=== PATIENT | male | born 1950 | race Hispanic/Latino ===

== ENCOUNTER 2017-10-21 10:24 | Inpatient (IN) | payer MEDICARE ==
[~2017-10-21] VITALS: Ht 165.1 cm; Wt 77.1 kg
[~2017-10-21 10:24] MED LIST: CARVEDILOL3.125 MG PO; FUROSEMIDE40 MG PO; GLYBURIDE5 MG PO; LEVOTHYROXINE112 MCG PO; PANTOPRAZOLE SO40 MG PO; SPIRONOLACTONE25 MG PO
[2017-10-21 11:47] LABS: BASOPHILS % 0.4 % (0.0-1.0); HEMATOCRIT 32.3 % (38.2-49.6); HEMOGLOBIN 10.5 g/dL (14.0-18.0); LYMPHOCYTES # (AUTO) 0.6 (1.0-3.2); LYMPHOCYTES % 8.2 % (18.0-39.1); MEAN CORPUSCULAR HEMOGLOBIN 32.8 pg (28-32); MEAN CORPUSCULAR HGB CONC 32.5 g/dL (31-35); MEAN CORPUSCULAR VOLUME 100.9 fL (81-99); MONOCYTES # (AUTO) 0.3 (0.2-0.8); MONOCYTES % 4.9 % (4.4-11.3); NEUTROPHILS # (AUTO) 5.8 (2.1-6.9); NEUTROPHILS % 86.4 % (38.7-80.0); PLATELET COUNT 183 x10e3/uL (140-360); RED CELL DISTRIBUTION WIDTH 14.5 % (11.7-14.4)
[2017-10-21 12:08] LABS: INR 1.57; PARTIAL THROMBOPLASTIN TIME 36.6 seconds (23.8-35.5); PROTHROMBIN TIME 19.6 seconds (11.9-14.5)
[2017-10-21 12:13] LABS: ALBUMIN 3.4 g/dL (3.5-5.0); ALBUMIN/GLOBULIN RATIO 1.1 (0.8-2.0); ANION GAP 26.4 mmol/L (8-16); CREATININE, SERUM 6.03 mg/dL (0.72-1.25); POTASSIUM 5.4 mmol/L (3.5-5.1)
[2017-10-21 12:16] LABS: CREATINE KINASE MB 0.7 ng/mL (0.00-5.00); TROPONIN I 0.033 ng/mL (0-0.300)
[2017-10-21 12:20] LABS: LYMPHOCYTES % (MANUAL) 5 % (19-48); METAMYELOCYTES % (MANUAL) 12 % (0-0); MONOCYTES % (MANUAL) 52 % (3.4-9.0); NEUTROPHILS % (MANUAL) 26 % (40-74)
[2017-10-21 12:21] LABS: PLATELET ESTIMATE SLIGHTLY DECREASED; PLATELET MORPHOLOGY COMMENT NORMAL; RBC MORPHOLOGY COMMENT NORMAL
--- NOTE | 2017-10-21 15:37 | Diagnostic Imaging Report ---
PROCEDURE:US GUIDED PARACENTESIS COMPARISON:None. INDICATIONS:Ascites FINDINGS: After informed consent was obtained, focused abdominal ultrasound identified a safe entry route into the free ascitic fluid in the left lower quadrant of the abdomen. The overlying skin was prepped and draped in sterile fashion. Lidocaine 1% was used for local anesthesia. Under ultrasound guidance, a centesis needle was advanced into the ascitic fluid, the needle was removed and the catheter attached to vacuum bottle. 7300 cc of dark fluid were aspirated. The catheter was removed. There was <1cc blood loss and no complications. Samples were sent to the laboratory for analysis. CONCLUSION: Uncomplicated ultrasound-guided paracentesis with removal of 7300 cc. Dictated by: Laurent Mosqueda M.D. on 10/21/2017 at 15:44 Electronically approved by: Laurent Mosqueda M.D. on 10/21/2017 at 15:44
[2017-10-21] MEDS ORDERED: ONDANSETRON HCL INJ 2 MG/ML VIAL IV PRN (16:00)
[2017-10-21] MEDS ORDERED: SODIUM CHLORIDE FLUSH 10 ML SYR INJ PRN (16:00)
[2017-10-21] MEDS ORDERED: HYDROMORPHONE 1MG/1ML INJ IV PRN (16:00)
[2017-10-21] MEDS ORDERED: CALCIUM GLUCONATE 10% INJ 9.3 MEQ in SODIUM CHLORIDE 0.9% 100 ML 100 ML IV ONE (16:00)
[2017-10-21] MEDS ORDERED: SOD POLYSTYRENE SULFONATE SUSP 15 GM/60 ML BTL PO ONE (16:00)
[2017-10-21] MEDS ORDERED: ALBUMIN HUMAN 25 GM/ 100 ML IV SCH (17:00)
[2017-10-21] MEDS ORDERED: ALBUMIN HUMAN 25 GM/ 100 ML IV ONE (17:00)
[2017-10-21] MEDS ORDERED: ALBUMIN HUMAN 100 ML IV ONE (17:15)
[2017-10-21] MEDS ORDERED: SOD POLYSTYRENE SULFONATE SUSP 15 GM/60 ML BTL PO NR (18:00)
[2017-10-21 18:10] LABS: BODY FLUID TYPE PERITONEAL
[2017-10-21 18:12] LABS: BODY FLUID APPEARANCE CLOUDY
[2017-10-21 18:14] LABS: RBC,BODY FLUID 4841 cells/uL; WBC,BODY FLUID 4336 cells/uL
[2017-10-21 18:50] LABS: BODY FLUID COLOR YELLOW
[2017-10-21 19:17] LABS: LYMPHOCYTES,BODY FLUID 6 %; MONO/MACROPHG,BODY FLUID 2 %; NEUTROPHILS,BODY FLUID 92 %
[2017-10-21] MEDS: SODIUM CHLORIDE 0.9% IV SCH (21:21)
[2017-10-21] MEDS: ALBUMIN HUMAN IV SCH (21:21)
[2017-10-21] MEDS ORDERED: SODIUM CHLORIDE 0.9% 1000ML 1,000 ML IV ONE (21:45)
[2017-10-21 23:05] LABS: BASOPHILS % 0.6 % (0.0-1.0); EOSINOPHILS % 0.3 % (0.0-6.0); HEMATOCRIT 24.1 % (38.2-49.6); LYMPHOCYTES # (AUTO) 0.3 (1.0-3.2); LYMPHOCYTES % 8.8 % (18.0-39.1); MEAN CORPUSCULAR HEMOGLOBIN 32.3 pg (28-32); MEAN CORPUSCULAR HGB CONC 30.3 g/dL (31-35); MEAN CORPUSCULAR VOLUME 106.6 fL (81-99); MONOCYTES # (AUTO) 0.1 (0.2-0.8); MONOCYTES % 4.2 % (4.4-11.3); NEUTROPHILS # (AUTO) 2.8 (2.1-6.9); NEUTROPHILS % 85.5 % (38.7-80.0); PLATELET COUNT 122 x10e3/uL (140-360); RED BLOOD COUNT 2.26 x10e6/uL (4.3-5.7); RED CELL DISTRIBUTION WIDTH 14.6 % (11.7-14.4)
[2017-10-21 23:11] LABS: HEMOGLOBIN 7.3 g/dL (14.0-18.0)
[2017-10-21] MEDS ORDERED: SODIUM CHLORIDE 0.9% 250ML 250 ML IV ONE (23:30)
[2017-10-21 23:31] LABS: ALBUMIN 2.9 g/dL (3.5-5.0); ALBUMIN/GLOBULIN RATIO 1.4 (0.8-2.0); ANION GAP 31.6 mmol/L (8-16); CALCIUM 10.7 mg/dL (8.4-10.2); CREATININE, SERUM 6.16 mg/dL (0.72-1.25); POTASSIUM 4.6 mmol/L (3.5-5.1)
--- NOTE | 2017-10-22 01:35 | Diagnostic Imaging Report ---
EXAM: CT Abdomen and Pelvis WITHOUT contrast INDICATION: Distended abdomen. Patient is status post paracentesis, suspicious for abdominal bleeding. COMPARISON: None. TECHNIQUE: Abdomen and pelvis were scanned utilizing a multidetector helical scanner from the lung base to the pubic symphysis without administration of IV contrast. Absence of intravenous contrast decreases sensitivity for detection of focal lesions and vascular pathology. Coronal and sagittal reformations were obtained. Routine protocol was performed. IV CONTRAST: None. ORAL CONTRAST: Water RADIATION DOSE: Not available at the time of interpretation Estimated effective dose: (DLP x 0.015 x size factor) mSv COMPLICATIONS: None FINDINGS: LINES and TUBES: None. LOWER THORAX: Small right pleural effusion and bibasilar atelectasis. HEPATOBILIARY: The liver appears nodular No focal hepatic lesions. No biliary ductal dilation. GALLBLADDER: There are cholecystectomy clips. SPLEEN: No splenomegaly. PANCREAS: No focal masses or ductal dilatation. ADRENALS: No adrenal nodules KIDNEYS/URETERS: No hydronephrosis. No cystic or solid mass lesions. No stones. GI TRACT: No abnormal distention, wall thickening, or evidence of bowel obstruction. Appendix is normal. PELVIC ORGANS/BLADDER: Unremarkable. LYMPH NODES: No lymphadenopathy. VESSELS: There is moderate atherosclerotic disease in the aorta and major arterial branches. PERITONEUM / RETROPERITONEUM: There is moderate of amount of free fluid in the abdomen. The density of the fluid within the peritoneal cavity is mostly simple fluid ranging between 10 and 15 HU, however, the fluid in the most dependent portion of the pelvis increases its density to 32 HU. There is evidence of moderate amount of free air in the peritoneal cavity which most likely is related to paracentesis. BONES: Unremarkable. SOFT TISSUES: There is diffuse anarsarca. IMPRESSION: 1. Ascites and pneumoperitoneum. 2. The density of the ascitic fluid in the pelvis is elevated suggestive of small amount of blood products. 3. No evidence of significant bleeding within the peritoneal cavity. 4. Follow-up of pneumoperitoneum is recommended with serial upright KUB until resolution. 5. Nodular liver suspicious for cirrhosis. Signed by: Dr. Gregor Bedoya M.D. on 10/22/2017 1:31 AM
[2017-10-22] MEDS: ALBUMIN HUMAN IV SCH ×4 (02:24→22:53)
[2017-10-22] MEDS: SODIUM CHLORIDE 0.9% IV SCH ×4 (02:24→22:53)
[2017-10-22] MEDS ORDERED: PHYTONADIONE 10 MG/ML AMP SQ STA (02:25)
[2017-10-22] MEDS ORDERED: ONDANSETRON HCL INJ 2 MG/ML VIAL IV STA (03:04)
[2017-10-22] MEDS ORDERED: OCTREOTIDE ACETATE 500 MCG in SODIUM CHLORIDE 0.9% 250ML 250 ML IV SCH (03:15)
[2017-10-22] MEDS ORDERED: SODIUM CHLORIDE 0.9% 250ML 250 ML ONE (03:25)
[2017-10-22] MEDS ORDERED: SODIUM CHLORIDE 0.9% 500ML 500 ML ONE (03:28)
[2017-10-22] MEDS ORDERED: OCTREOTIDE ACETATE 1 ML ONE (03:29)
[2017-10-22] MEDS ORDERED: PANTOPRAZOLE 40 MG 10ML VIAL IV STA (04:09)
[2017-10-22] MEDS ORDERED: LIDOCAINE HCL 1% LOCAL INJ 20 ML VIAL ONE (05:28)
--- NOTE | 2017-10-22 05:58 | Diagnostic Imaging Report ---
Non-tunneled Dialysis Catheter Placement October 22, 2017 Pre-Procedure Diagnosis: Renal failure Post-procedure Diagnosis:Renal failure Utilization Management Manager: Paz Cavazos Waste Collection Driver: None Sedation: None. Heart rate and oxygen saturation were monitored in real-time. Blood pressure was measured in 5 minute increments. 1% lidocaine was used for local anesthesia. Radiation Dose: 4.747 mGy (cumulative air kerma) Fluoroscopy time: 0.2 minutes Estimate blood loss: <5 mL Blood administered: None Complications: None Implants/Grafts: 13 Latvian 15 cm 3 lumen temporary dialysis catheter (Trialysis) Specimen: None Procedure: Informed consent was obtained and the patient positioned supine in the fluoroscopy suite. A timeout was performed, followed by preliminary ultrasound of the right internal jugular vein (see findings below). The right neck and chest were prepped and draped in standard fashion. Using real-time ultrasound guidance a 18 gauge vascular needle was used to access the right internal jugular vein. An image was stored in the electronic medical record. A wire was advanced and the needle exchanged for a non-tunneled dialysis catheter using standard Salinger technique. At the end of the procedure the catheter was flushed, secured to the skin and a sterile dressing applied. The patient tolerated the procedure well and without immediate complication. Findings: Patent right internal jugular vein as demonstrated by normal ultrasound compressibility. Impression: Successful placement of a non-tunneled right internal jugular vein dialysis catheter using ultrasound guidance. This report was generated with voice-recognition technology. Errors in folder stitcher operator can occur. Please interpret accordingly and contact a radiologist if there are any questions regarding the report. Signed by: Dr. Amado Cavazos M.D. on 10/22/2017 8:37 AM
[2017-10-22] MEDS ORDERED: ALBUMIN HUMAN 100 ML IV SCH (07:45)
[2017-10-22] MEDS ORDERED: NOREPINEPHRINE BITARTRATE/ NS 250 ML IV STA (07:48)
[2017-10-22 07:49] LABS: ABG HCO3 11 mmol/L (23-28); ABG PCO2 28 mmHg (41-51); ABG PH 7.22 (7.31-7.41); ABG PO2 81 mmHg (80-105)
[2017-10-22 07:55] LABS: BASOPHILS % 0.9 % (0.0-1.0); EOSINOPHILS % 0.3 % (0.0-6.0); HEMATOCRIT 27.6 % (38.2-49.6); HEMOGLOBIN 8.9 g/dL (14.0-18.0); LYMPHOCYTES # (AUTO) 0.1 (1.0-3.2); LYMPHOCYTES % 3.8 % (18.0-39.1); MEAN CORPUSCULAR HEMOGLOBIN 31.9 pg (28-32); MEAN CORPUSCULAR HGB CONC 32.2 g/dL (31-35); MEAN CORPUSCULAR VOLUME 98.9 fL (81-99); MONOCYTES # (AUTO) 0.2 (0.2-0.8); NEUTROPHILS # (AUTO) 3.1 (2.1-6.9); NEUTROPHILS % 89.4 % (38.7-80.0); PLATELET COUNT 96 x10e3/uL (140-360); RED BLOOD COUNT 2.79 x10e6/uL (4.3-5.7); RED CELL DISTRIBUTION WIDTH 16.4 % (11.7-14.4)
[2017-10-22 08:08] LABS: INR 1.69; PROTHROMBIN TIME 20.8 seconds (11.9-14.5)
[2017-10-22 08:09] LABS: PARTIAL THROMBOPLASTIN TIME 35.4 seconds (23.8-35.5)
[2017-10-22 08:17] LABS: BASOPHILS % 0.6 % (0.0-1.0); EOSINOPHILS % 0.3 % (0.0-6.0); HEMATOCRIT 27.8 % (38.2-49.6); LYMPHOCYTES # (AUTO) 0.1 (1.0-3.2); MEAN CORPUSCULAR HEMOGLOBIN 31.9 pg (28-32); MEAN CORPUSCULAR HGB CONC 32.4 g/dL (31-35); MEAN CORPUSCULAR VOLUME 98.6 fL (81-99); MONOCYTES # (AUTO) 0.2 (0.2-0.8); MONOCYTES % 5.2 % (4.4-11.3); NEUTROPHILS # (AUTO) 3.1 (2.1-6.9); PLATELET COUNT 98 x10e3/uL (140-360); RED BLOOD COUNT 2.82 x10e6/uL (4.3-5.7); RED CELL DISTRIBUTION WIDTH 16.5 % (11.7-14.4)
[2017-10-22 08:24] LABS: CREATINE KINASE MB 1.4 ng/mL (0.00-5.00); TROPONIN I 0.022 ng/mL (0-0.300)
[2017-10-22 08:26] LABS: ALBUMIN 3.4 g/dL (3.5-5.0); ALBUMIN/GLOBULIN RATIO 1.4 (0.8-2.0); ANION GAP 33.3 mmol/L (8-16); CALCIUM 10.5 mg/dL (8.4-10.2); CREATININE, SERUM 6.36 mg/dL (0.72-1.25); POTASSIUM 4.3 mmol/L (3.5-5.1)
[2017-10-22 08:55] LABS: HYPOCHROMASIA SLIGHT; LYMPHOCYTES % (MANUAL) 17 % (19-48); METAMYELOCYTES % (MANUAL) 9 % (0-0); MONOCYTES % (MANUAL) 58 % (3.4-9.0); MYELOCYTES % (MANUAL) 2 % (0-0); NEUTROPHILS % (MANUAL) 12 % (40-74)
[2017-10-22 08:56] LABS: ANISOCYTOSIS SLIG; PLATELET ESTIMATE MODERATELY DECREASED; PLATELET MORPHOLOGY COMMENT FEW LARGE; POIKILOCYTOSIS SLIGHT; RBC MORPHOLOGY COMMENT ABNORMAL
[2017-10-22] MEDS ORDERED: SODIUM CHLORIDE 0.9% 1000ML 1,000 ML ONE (09:32)
[2017-10-22] MEDS ORDERED: MANNITOL 25% 12.5GM/50 ML VIAL IV ONE (10:00)
[2017-10-22] MEDS ORDERED: ALBUMIN HUMAN 12.5GM / 50ML IV ONE (10:00)
[2017-10-22] MEDS ORDERED: CEFTRIAXONE SOD 2 GM in WATER STERILE 10ML VIAL 20 ML IV SCH (10:15)
[2017-10-22] MEDS: PHENYLEPHRINE 10MG/ML VIAL 40 MG in DEXTROSE 5% 250ML 250 ML IV SCH ×2 (10:37→16:21)
--- NOTE | 2017-10-22 10:37 | Diagnostic Imaging Report ---
PROCEDURE:CHEST SINGLE (PORTABLE) TECHNIQUE:Portable AP chest INDICATION:Acute renal failure COMPARISON:None. FINDINGS: Non-tunneled right internal jugular dialysis catheter with tip atrial caval junction. Lungs are clear and symmetrically inflated. Cardiomegaly with central vascular congestion. No pleural effusions. Intact skeleton. CONCLUSION: Cardiomegaly with central vascular congestion. Dictated by: Amado Cavazos M.D. on 10/22/2017 at 10:45 Electronically approved by: Amado Cavazos M.D. on 10/22/2017 at 10:45
--- NOTE | 2017-10-22 10:59 | Consultation ---
DATE OF CONSULTATION: October 22, 2017 REASON FOR CONSULTATION: DAYNA. HISTORY: Mr. Asher is a 66-year-old man with a history of cirrhosis, who presented to the emergency department yesterday with worsening abdominal distention. Undergoes paracentesis regularly and was due to have a paracentesis performed today. However, he presented to the emergency department yesterday due to worsening distention. He underwent paracentesis with 7 L removed. Soon after, patient wanted to sign out AMA. At that point, labs showed DAYNA with a BUN of 110 and creatinine of 6 mg/dL. Patient decided to stay, and overnight has developed worsening abdominal distention and tense ascites. Labs showed persistently worse renal function. Abdominal CT showed pneumoperitoneum and small amount of blood products in the peritoneal cavity along with moderate ascites. Over the course of the night, he has had no improvement in his condition. Unable to have Recio placed. Bladder scan done on initial presentation showed 140 mL. Repeat bladder scan this morning is pending. REVIEW OF SYSTEMS: Unable to obtain due to altered mental status. PAST MEDICAL HISTORY: Significant for alcoholic cirrhosis. PAST SURGICAL HISTORY: Repeated paracentesis. SOCIAL HISTORY: Stopped drinking 2 weeks ago. Unable to obtain history in regards to tobacco, drug abuse. FAMILY HISTORY: Unable to obtain. MEDICATIONS: Reviewed in electronic medical record. PHYSICAL EXAMINATION: GENERAL: He is lying in bed, does seem to be in moderate distress. HEENT: NCAT. PERRLA. EOMI. NECK: JVD appreciated. LUNGS: Decreased breath sounds at the bases. No wheezing or rales. HEART: Regular rate and rhythm. S1 and S2 normal. No murmurs, rubs, or gallops. ABDOMEN: Distended and tense, but no guarding. LOWER EXTREMITIES: Multiple petechiae, but no edema. MUSCULOSKELETAL: Normal inspection. NEURO: He is confused and minimally responsive to questioning. LABS: Reviewed in electronic medical record. BUN at this point is 120 mg/dL and creatinine is 6.1. ASSESSMENT: Mr. Asher is a 66-year-old man who presents with acute kidney injury, which at this point is oliguric. Differential includes abdominal compartment syndrome, hepatorenal syndrome type 1, and prerenal azotemia. Will start him on treatment for acute kidney injury, perform a STAT bladder scan to assure and assess urine output. Urology consult for Recio placement. Renal function panel every 8 hours Thank you, Dr. Juares for allowing me to participate in the care of Mr. Asher. I will continue to follow closely. Job#: [id number] DR MCKEON
--- NOTE | 2017-10-22 11:47 | Consultation ---
DATE OF CONSULTATION: October 22, 2017 PULMONARY/CRITICAL CARE CONSULTATION HPI: Mr. Asher is a 66-year-old male with end-stage liver disease, chronic liver disease due to alcohol use. He has a history of alcohol use. He was drinking up until a month ago. He comes here off and on to have paracentesis. His last paracentesis was done yesterday where almost 6 to 7 liters of fluid was taken out. He became hypotensive and was sent to the emergency room. He is currently denying any chest pain. He is having some abdominal distention and abdominal pain. In the emergency room, the patient was found to be hypotensive, and the patient was started on Levophed. He was also found to have low hemoglobin, and he was transfused 2 units of FFP and 2 units of blood. Nephrology was consulted on the patient, and hemodialysis has been requested today. He will get hemodialysis. His usual followup is at the [facility]. REVIEW OF SYSTEMS GENERAL: Denies any fever or chills. HEAD: Denies any head trauma or head injury. ENT: Denies any earache or nosebleed. CVS: Denies any chest pain. RESPIRATORY: Mild shortness of breath. GI: Abdominal distention, ascites. OTHER: The rest of the review of systems are negative except as in HPI. PAST MEDICAL HISTORY: Chronic liver disease. Alcoholism. Ascites. Possibly had underlying renal failure, now with acute worsening. ALLERGIES: NO KNOWN DRUG ALLERGIES. PAST SURGICAL HISTORY: Cholecystectomy. PHYSICAL EXAMINATION VITALS: Temperature 99.6, pulse of 101, blood pressure 87/43, respiratory rate 18, O2 sat 97%. SKIN: Warm and dry. He is icteric. Lower extremity skin has a petechial rash. Unsure of the etiology of the rash. HEENT: Oral mucosa is dry. Poor dental hygiene. NECK: Supple. No JVD. CHEST: Clear to auscultation bilaterally. ABDOMEN: Distended. EXTREMITIES: Trace pedal edema. Rash on both lower extremities. LABS: White count of 3.41, hemoglobin 8.9, platelet count 96. Chemistry: Sodium 138, potassium 4.3, chloride 98, BUN 121, creatinine 6.36, total bilirubin 3.6. AST and ALT are 11 [address] of the abdomen and pelvis, which is showing ascites and pneumoperitoneum. Density of ascitic fluid in the pelvis is elevated suggestive of small amount of blood products. No evidence of significant bleeding. Nodular liver suspicious for cirrhosis. ASSESSMENT AND PLAN: Mr. Reymundo Asher is a 66-year-old male who presented to the emergency room after having large volume paracentesis resulting in hypotension. CURRENT PROBLEMS 1. Chronic liver disease due to alcohol use, liver cirrhosis per the CT scan. 2. Acute kidney injury. May have underlying chronic kidney disease. Baseline creatinine is not available. Differential for acute kidney injury could be hepatorenal versus acute tubular necrosis. Possibly compartment syndrome, however unlikely as recently large volume paracentesis was done. 3. Hypotension, circulatory shock due to chronic liver disease and hypovolemia. 4. Coagulopathy. PLAN 1. Nephrology has been consulted. Patient will possibly get hemodialysis. 2. Continue the patient on Levophed for blood pressure support. 3. The patient should be admitted to the ICU. 4. Anemia and thrombocytopenia due to chronic liver disease. Patient underwent 2 units of blood transfusion. The ascitic fluid is showing fluid total cell count of 100. Neutrophils are 92%. Possibility of SBP cannot be ruled out. Agree with IV Rocephin. 5. On octreotide infusion for possibility of hepatorenal syndrome. Discussed with the patient's close friend at bedside. Critical care time spent 50 minutes. Job#: [id number]
--- NOTE | 2017-10-22 13:50 | Consultation ---
DATE OF CONSULTATION: October 22, 2017 GASTROENTEROLOGY CONSULTATION REFERRING PHYSICIAN: Clinton Juares MD REASON FOR CONSULTATION: Decompensated cirrhosis. HISTORY OF PRESENT ILLNESS: Mr. Asher is a 66-year-old man with decompensated alcoholic cirrhosis. He reports he gets his healthcare through the [facility]. He was just there roughly 2 weeks ago and, per family at bedside, they think he was likely treated for SBP for 2 weeks. He left against medical advice. He has alcoholism and has been drinking as recently as 19 days ago per his report. He came to the ER yesterday and had a paracentesis. White count was high at 4336. However, there was also a high RBC count at 4841. The fluid was primarily PMN. Cultures were showing gram-negative rods as well as some Gram stain. Hemoglobin did drop from baseline of 10 to 11 down to 7.3 after the procedure and is stable now. He denies any overt bleeding or melena. He has diffuse abdominal pain. He is awake and oriented but lethargic and has asterixis. PAST MEDICAL HISTORY 1. Alcoholic cirrhosis. 2. Alcoholism. 3. Diabetes. 4. Hypertension. 5. GERD. SURGICAL HISTORY: Includes cholecystectomy, cataract surgery, and paracentesis. MEDICATIONS AND ALLERGIES: Reviewed, please see MAR and medication reconciliation form. SOCIAL HISTORY: Alcohol as recent as 19 days ago. FAMILY HISTORY: Noncontributory but reviewed. REVIEW OF SYSTEMS: Ten-system review is positive for that mentioned in HPI, otherwise unremarkable. PHYSICAL EXAMINATION GENERAL: He appears lethargic and chronically ill. HEENT: Pupils are equal, round, and reactive to light. He has some arcus senilis. NECK: Supple. LUNGS: Decreased at the bases. CARDIOVASCULAR: S1 and S2. ABDOMEN: Tender throughout. He has some mild tympany in the epigastric region. He has ascites. There is no rebound, guarding or masses. Significant ecchymotic areas. EXTREMITIES: No clubbing or cyanosis. PSYCH: Lethargic but cooperative. NEUROLOGIC: Alert and oriented. He has asterixis, though. HEM-ONC: No adenopathy. Electronic health record reviewed for laboratory and radiologic studies as well as history. ASSESSMENT 1. Severe decompensated cirrhosis. 2. Bacterial peritonitis, primary versus secondary, with history of bacterial peritonitis after he left against medical advice at the [facility] a couple of weeks ago. 3. Recent alcohol abuse. 4. Renal failure. 5. Encephalopathy. 6. Acute blood loss anemia, likely related to the paracentesis. 7. Coagulopathy related to cirrhosis. PLAN: At the current time, he has a very poor prognosis. He will need to be seen by nephrology. I agree with ICU status. He is currently on 2 pressors and septic. Given the decompensated cirrhosis, the active infection and renal failure, his overall prognosis is very poor. We will need to follow up the pending ascitic fluid culture for identification and sensitivities. He will need to be on broad-spectrum antibiotics. He has pneumoperitoneum, which is likely just related to the paracentesis. However, underlying pathology is not excluded yet. I will try to get him stabilized. Treat his sepsis and renal failure and altered mental status with lactulose and Xifaxan. Once stabilized, I would request transfer back to the [place] as they have continuity there as well as transplant capability if he were to: 1) Become stable enough, and 2) Pass their social evaluation, given his recent alcohol and noncompliance. Thank you very much for asking me to see Mr. Asher. If you have any questions or concerns, please do not hesitate to contact me. Job#: [id number]
[2017-10-22] MEDS ORDERED: ALBUMIN HUMAN 25 GM/ 100 ML IV SCH (14:00)
--- NOTE | 2017-10-22 14:18 | Diagnostic Imaging Report ---
PROCEDURE:US RETROPERITONEAL ( KIDNEY ). COMPARISON:None. INDICATIONS:Renal Failure TECHNIQUE: Green scale and color Doppler ultrasound kidneys FINDINGS: Right kidney: 9.1 x 5.9 x 5.6 cm. Cortical thickness 1.9 cm. Left kidney: 9.3 x 5.4 x 5.1 cm. Cortical thickness 1.8 cm. Both kidneys demonstrate normal parenchymal echogenicity. No stone, cyst or mass. No hydronephrosis. Urinary bladder decompressed by Recio catheter. Mild ascites noted. CONCLUSION: No acute abnormality. No evidence of obstruction. Dictated by: Amado Cavazos M.D. on 10/22/2017 at 14:26 Electronically approved by: Amado Cavazos M.D. on 10/22/2017 at 14:26
[2017-10-22] MEDS: LACTULOSE SYRUP 20 GM/30 ML UDC PO SCH ×2 (15:00→22:46)
[2017-10-22 15:06] LABS: ABG HCO3 16 mmol/L (23-28); ABG PCO2 31 mmHg (41-51); ABG PH 7.33 (7.31-7.41); ABG PO2 64 mmHg (80-105)
--- NOTE | 2017-10-22 15:24 | Diagnostic Imaging Report ---
PROCEDURE: A single AP view of the chest. COMPARISON: Chest radiograph 10/22/2017 INDICATIONS: RESPIRATORY DISTRESS FINDINGS: Lines/tubes: Right internal jugular dialysis catheter tip overlies the cavoatrial junction. Lungs: The lungs are mildly inflated. There is no evidence of pneumonia. Mild central pulmonary venous congestion. Pleura: There is no pleural effusion or pneumothorax. Heart and mediastinum: Stable mild enlargement of the cardiac silhouette. Aortic arch calcifications. Bones: No acute bony abnormality. IMPRESSION: Cardiomegaly and central pulmonary venous congestion. Dictated by: Bruce Alarcon M.D. on 10/22/2017 at 15:32 Electronically approved by: Bruce Alarcon M.D. on 10/22/2017 at 15:32
--- NOTE | 2017-10-22 15:36 | Consultation ---
DATE OF CONSULTATION: October 22, 2017 REQUESTING PHYSICIAN: Dr. Jose Juares. REASON FOR CONSULTATION: Abnormal EKG. HISTORY OF PRESENT ILLNESS: This is a 66-year-old man with history of cirrhosis for which he undergoes regular paracenteses who presented to the ER for increasing abdominal pain. He underwent paracentesis yesterday with 7 liters removed. Afterwards he attempted to sign out AMA; however, he was found to have acute kidney injury with creatinine of 6. Overnight he had worsening abdominal distention and ascites with vasopressor requirement for which he is now on Levophed 30 mcg a minute and phenylephrine 110 mcg a minute. He also was noted to have acute blood loss anemia and EKG changes for which cardiology is consulted. History is limited from the patient, but he does endorse chest pain and shortness of breath. REVIEW OF SYSTEMS: Unable to obtain due to altered mental status. PAST MEDICAL HISTORY: Cirrhosis with regular paracenteses. Hypertension. Diabetes. Hyperlipidemia. PAST SURGICAL HISTORY: Cholecystectomy. Cataracts. ALLERGIES: PLEASE SEE EMR. MEDICATIONS: Please see medication reconciliation. SOCIAL HISTORY: Limited, but apparently regular alcohol use. Unable to obtain history regarding his smoking or any illicit drug use. FAMILY HISTORY: Noncontributory. PHYSICAL EXAMINATION VITAL SIGNS: Temperature 99.6 degrees, pulse 103, respiratory rate 22, blood pressure 106/40, oxygen saturation 97%. GENERAL: A well-nourished, well-developed man in no acute distress. HEENT: Normocephalic, atraumatic. NECK: Supple. No thyromegaly or cervical lymphadenopathy. No carotid bruits. LUNGS: Decreased breath sounds at the bases. No wheezes or crackles. ABDOMEN: Distended. Tender to palpation. EXTREMITIES: No edema. NEUROLOGIC: Awake, but is not very responsive to questioning. SKIN: Petechiae noted on bilateral lower extremities. LABORATORY DATA: Sodium 138, potassium 4.3, chloride 98, CO2 of 11, BUN 121, creatinine 6.36. WBCs 3.4, hemoglobin 8.9, hematocrit 27.6, platelets 96,000, INR 1.69. EKG notable for normal sinus rhythm with PACs, nonspecific ST and T wave abnormalities. Chest x-ray: Cardiomegaly with central vascular congestion. CT of the abdomen and pelvis ascites and pneumoperitoneum, dense ascitic fluid in the pelvis that is elevated suggestive of small amount of blood product. No evidence of significant bleeding within the peritoneal cavity. Followup pneumoperitoneum is recommended with serial upright KUB until resolution. Nodular liver suspicious for cirrhosis. IMPRESSION 1. Acute renal failure, possibly hepatorenal. 2. Decompensated cirrhosis. 3. Acute blood loss anemia. 4. Abnormal EKG. RECOMMENDATIONS: Trend cardiac enzymes. No evidence of myocardial infarction thus far. Obtain echocardiogram. Monitor on telemetry for now. Agree with supportive care as needed. The patient is being initiated on hemodialysis by nephrology. Will defer volume management to them given his dialysis and oliguria. No anticoagulation at this time given his acute blood loss anemia and thrombocytopenia. Thank you for this consult. We will continue to follow. Job#: [id number] GH MIKE
[2017-10-22] MEDS: ALBUMIN HUMAN 100 ML IV SCH ×2 (16:19→22:46)
[2017-10-22] MEDS: CEFTRIAXONE SOD 2 GM VIAL IV SCH (16:21)
[2017-10-22] MEDS: RIFAXIMIN 550 MG TABLET PO SCH (17:00)
[2017-10-22] MEDS: NOREPINEPHRINE BITARTRATE/ NS 250 ML IV SCH ×2 (18:25→21:19)
[2017-10-22] MEDS: PANTOPRAZOLE 40 MG 10ML VIAL IV SCH (18:31)
[2017-10-22] MEDS: OCTREOTIDE ACETATE 500 MCG in SODIUM CHLORIDE 0.9% 250ML 250 ML IV SCH (18:31)
[2017-10-22 21:03] LABS: BASOPHILS # (AUTO) 0.1 (0.0-0.1); BASOPHILS % 0.9 % (0.0-1.0); EOSINOPHILS % 0.2 % (0.0-6.0); HEMATOCRIT 29.5 % (38.2-49.6); HEMOGLOBIN 9.8 g/dL (14.0-18.0); LYMPHOCYTES # (AUTO) 0.3 (1.0-3.2); LYMPHOCYTES % 3.5 % (18.0-39.1); MEAN CORPUSCULAR HEMOGLOBIN 32.1 pg (28-32); MEAN CORPUSCULAR HGB CONC 33.2 g/dL (31-35); MEAN CORPUSCULAR VOLUME 96.7 fL (81-99); MONOCYTES # (AUTO) 0.4 (0.2-0.8); MONOCYTES % 4.7 % (4.4-11.3); NEUTROPHILS # (AUTO) 7.6 (2.1-6.9); NEUTROPHILS % 89.8 % (38.7-80.0); PLATELET COUNT 119 x10e3/uL (140-360); RED BLOOD COUNT 3.05 x10e6/uL (4.3-5.7); RED CELL DISTRIBUTION WIDTH 18.2 % (11.7-14.4)
[2017-10-22 21:13] LABS: ANION GAP 27.3 mmol/L (8-16); CALCIUM 7.9 mg/dL (8.4-10.2); CREATININE, SERUM 2.55 mg/dL (0.72-1.25); POTASSIUM 4.3 mmol/L (3.5-5.1)
[2017-10-22] MEDS ORDERED: LACTULOSE SYRUP 20 GM/30 ML UDC PO ONE (21:15)
--- NOTE | 2017-10-22 22:06 | Diagnostic Imaging Report ---
EXAMINATION: CHEST SINGLE (PORTABLE) INDICATION: Respiratory distress, endotracheal tube placement COMPARISON: None FINDINGS: TUBES and LINES: Right IJ dual-lumen central line catheter and endotracheal tube are present in good position. LUNGS: Lungs are not well inflated. There are bibasilar atelectasis. There is mild prominence of the central pulmonary vasculature, consistent with pulmonary venous congestion. PLEURA: No pleural effusion or pneumothorax. HEART AND MEDIASTINUM: Cardiac size is mildly enlarged. There are atherosclerotic calcifications within the aorta. BONES AND SOFT TISSUES: No acute osseous lesion. Soft tissues are unremarkable. UPPER ABDOMEN: No free air under the diaphragm. IMPRESSION: Low lung volumes with evidence of atelectasis. Signed by: Dr. Gregor Bedoya M.D. on 10/22/2017 10:03 PM
[2017-10-22 22:13] LABS: ABG HCO3 13 mmol/L (23-28); ABG PCO2 33 mmHg (41-51); ABG PH 7.18 (7.31-7.41); ABG PO2 73 mmHg (80-105)
--- NOTE | 2017-10-22 22:28 | Diagnostic Imaging Report ---
EXAM: ABDOMEN-1VIEW (KUB) DATE: 10/22/2017 9:38 PM Time stamp on exam: 9 hours INDICATION: NG tube placement COMPARISON: None FINDINGS: LINES/TUBES: Visualized NG tube with tip overlying the left upper quadrant in the region of the gastric body. Multiple tubes and ETT leads overlie the chest BOWEL PATTERN: No evidence for obstruction. SOFT TISSUES: No abnormal calcifications. No mass effect. LUNG BASES: Bibasilar atelectasis BONES: Degenerative changes of the thoracolumbar spine. IMPRESSION: NG tube in good position. Signed by: Dr. Gregor Bedoya M.D. on 10/22/2017 10:24 PM
[2017-10-22] MEDS ORDERED: VASOPRESSIN INJ 20 UNIT/ML VIAL ONE (22:43)
[2017-10-22] MEDS: DEXTROSE 5% 1000ML 1,000 ML IV SCH (22:45)
[2017-10-22] MEDS ORDERED: VASOPRESSIN 100 UNIT in DEXTROSE 5% 100ML 95 ML IV SCH (22:45)
[2017-10-22] MEDS ORDERED: FENTANYL CITRATE INJ 2,000 MCG in SODIUM CHLORIDE 0.9% 250ML 210 ML IV PRN (22:45)
[2017-10-22] MEDS ORDERED: SODIUM BICARBONATE 8.4% 50 ML VIAL IV STA ×2 (22:52→23:16)
[2017-10-22] MEDS ORDERED: SODIUM BICARBONATE 8.4% SYRING 200 ML ONE (22:55)
[2017-10-22] MEDS ORDERED: DEXTROSE 5% 1000ML 1,000 ML IV ONE (22:56)
[2017-10-23] MEDS: PHENYLEPHRINE 10MG/ML VIAL 40 MG in DEXTROSE 5% 250ML 250 ML IV SCH ×4 (00:40→09:35)
[2017-10-23] MEDS ORDERED: VASOPRESSIN 100 UNIT in DEXTROSE 5% 100ML 95 ML IV SCH (00:45)
[2017-10-23] MEDS: NOREPINEPHRINE BITARTRATE/ NS 250 ML IV SCH ×3 (01:24→09:35)
--- NOTE | 2017-10-23 01:36 | Consultation ---
DATE OF CONSULTATION: October 22, 2017 CHIEF COMPLAINT: Abdominal distention and drop in hemoglobin. HISTORY OF PRESENT ILLNESS: The patient is a 66-year-old male with a known history of alcoholic cirrhosis with ascites. The patient underwent frequent paracentesis at intervals. After paracentesis approximately 24 hours prior to admission, the patient developed hypertension abdominal pain and noted a drop in hemoglobin from 10 to 7. He was given blood transfusions, and placed on vasopressors and admitted to the intensive care unit. The patient had been alert initially, but has increasingly becoming more obtunded. PAST MEDICAL HISTORY: As mentioned is positive for cirrhotic liver with ascites, metabolic syndrome with diabetes, hypertension, hyperlipidemia, GERD, and history of alcoholism. PAST SURGICAL HISTORY: Positive for cholecystectomy. REVIEW OF SYSTEMS: Not obtainable given his obtunded status. PHYSICAL EXAMINATION VITAL SIGNS: Temperature of 97. His heart rate is 104, blood pressure is 100/50. GENERAL: The patient is obtunded and in some respiratory distress. HEENT: Icteric. LUNGS: Decreased breath sounds bilaterally from abdominal distention. HEART: Regular rate and rhythm. No murmur. ABDOMEN: Distended and tight. EXTREMITIES: With mild ankle edema. White cell count is 3.4, hemoglobin of 9 and platelet count of 98,000. INR of 1.6. Ammonia of 234, alkaline phosphatase of 56, bilirubin of 3.6. CT of the abdomen showed ascites with density in the pelvis suggestive of small amount of blood products. CT scan showed no significant evidence of bleeding intraperitoneally. Some pneumoperitoneum likely secondary to recent paracentesis. ASSESSMENT: End-stage liver disease with decompensation shortly after recent paracentesis. Some minor bleeding intraperitoneally on computerized tomography scan. PLAN: Continue supportive care with antibiotics and vasopressors. Patient is currently on dialysis. Family is deciding on the question of comfort measures only. Will follow the patient with you. Job#: [id number] JAYCE
[2017-10-23] MEDS: LACTULOSE SYRUP 20 GM/30 ML UDC PO SCH ×3 (02:00→11:22)
[2017-10-23 02:31] VITALS: BP 114/37
--- NOTE | 2017-10-23 04:28 | Diagnostic Imaging Report ---
EXAM: ABDOMEN-1VIEW (KUB) DATE: 10/23/2017 5:00 AM Time stamp on exam: 3:35 AM INDICATION: Pneumoperitoneum COMPARISON: CT of the abdomen and pelvis on 10/22/2017 FINDINGS: LINES/TUBES: NG tube is visualized with tip overlying the gastric body BOWEL PATTERN: No evidence for obstruction. SOFT TISSUES: Cholecystectomy clips are present LUNG BASES: Not included BONES: No acute findings. IMPRESSION: Portable dorsal decubitus film is a limited exam for evaluation of free air in the peritoneal cavity. Standing KUB or chest x-ray may be beneficial Signed by: Dr. Gregor Bedoya M.D. on 10/23/2017 4:25 AM
[2017-10-23] MEDS: ALBUMIN HUMAN 100 ML IV SCH ×2 (05:23→16:59)
[2017-10-23] MEDS: OCTREOTIDE ACETATE 500 MCG in SODIUM CHLORIDE 0.9% 250ML 250 ML IV SCH ×2 (05:23→16:59)
[2017-10-23] MEDS ORDERED: DEXTROSE 50% SYRINGE 50 ML IV ONE ×2 (05:23→09:20)
[2017-10-23] MEDS: ALBUMIN HUMAN IV SCH ×4 (05:36→16:59)
[2017-10-23] MEDS: SODIUM CHLORIDE 0.9% IV SCH ×4 (05:36→16:59)
[2017-10-23 05:42] LABS: BASOPHILS % 0.4 % (0.0-1.0); EOSINOPHILS # (AUTO) 0.1 (0.0-0.4); EOSINOPHILS % 0.7 % (0.0-6.0); HEMATOCRIT 25.6 % (38.2-49.6); LYMPHOCYTES # (AUTO) 0.3 (1.0-3.2); LYMPHOCYTES % 4.2 % (18.0-39.1); MEAN CORPUSCULAR HGB CONC 30.5 g/dL (31-35); MEAN CORPUSCULAR VOLUME 104.9 fL (81-99); MONOCYTES # (AUTO) 0.3 (0.2-0.8); MONOCYTES % 4.2 % (4.4-11.3); NEUTROPHILS # (AUTO) 6.3 (2.1-6.9); NEUTROPHILS % 87.9 % (38.7-80.0); PLATELET COUNT 86 x10e3/uL (140-360); RED BLOOD COUNT 2.44 x10e6/uL (4.3-5.7); RED CELL DISTRIBUTION WIDTH 18.7 % (11.7-14.4)
[2017-10-23 06:03] LABS: ALBUMIN 3.5 g/dL (3.5-5.0); ANION GAP 32.5 mmol/L (8-16); CALCIUM 7.3 mg/dL (8.4-10.2); CREATININE, SERUM 3.37 mg/dL (0.72-1.25); PHOSPHORUS 7.5 MG/DL (2.3-4.7); POTASSIUM 5.5 mmol/L (3.5-5.1)
[2017-10-23 06:06] LABS: HEMOGLOBIN 7.8 g/dL (14.0-18.0)
[2017-10-23] MEDS ORDERED: SODIUM BICARBONATE 8.4% 50 ML VIAL IV STA ×2 (06:48→06:54)
[2017-10-23] MEDS ORDERED: SODIUM BICARBONATE 8.4% SYRING 100 ML ONE (06:54)
[2017-10-23 06:59] LABS: MAGNESIUM 2.8 MG/DL (1.3-2.1); PHOSPHORUS 7.5 MG/DL (2.3-4.7)
[2017-10-23 07:04] LABS: ABG HCO3 8 mmol/L (23-28); ABG PCO2 44 mmHg (41-51); ABG PH 6.89 (7.31-7.41); ABG PO2 203 mmHg (80-105)
[2017-10-23] MEDS ORDERED: EPINEPHRINE HCL 1:1000 4 MG in DEXTROSE 5% 250ML 250 ML IV PRN (07:30)
[2017-10-23] MEDS: RIFAXIMIN 550 MG TABLET PO SCH ×2 (09:00→17:00)
[2017-10-23] MEDS ORDERED: THIAMINE HCL INJ 100 MG/ML 2ML VIAL IV SCH (09:00)
[2017-10-23] MEDS: CEFTRIAXONE SOD 2 GM VIAL IV SCH (09:33)
[2017-10-23] MEDS: PANTOPRAZOLE 40 MG 10ML VIAL IV SCH ×2 (09:33→17:00)
[2017-10-23] MEDS ORDERED: SODIUM CHLORIDE 0.9% 250ML 250 ML ONE (11:39)
[2017-10-23] MEDS ORDERED: THIAMINE HCL INJ 100 MG in SODIUM CHLORIDE 0.9% 50ML 50 ML IV SCH (12:00)
[2017-10-23] MEDS ORDERED: PIPER-TAZ 3.375 GM 50 ML IV SCH (12:00)
[2017-10-23] MEDS ORDERED: VANCOMYCIN 1GM/NS 250 ML 250 ML IV ONE (13:00)
[2017-10-23] MEDS ORDERED: HYDROCORTISONE SOD SUCCINATE 100 MG VIAL IV SCH (14:00)
[2017-10-23 14:34] LABS: BAND NEUTROPHILS % (MANUAL) 37 %; BLAST CELLS % MANUAL 1; LYMPHOCYTES % (MANUAL) 10 % (19-48); METAMYELOCYTES % (MANUAL) 20 % (0-0); MONOCYTES % (MANUAL) 6 % (3.4-9.0); MYELOCYTES % (MANUAL) 6 % (0-0); NEUTROPHILS % (MANUAL) 20 % (40-74)
[2017-10-23 14:37] LABS: ANISOCYTOSIS SLIGHT; PLATELET ESTIMATE MODERATELY DECREASED; PLATELET MORPHOLOGY COMMENT NORMAL; POIKILOCYTOSIS MARKED; RBC MORPHOLOGY COMMENT ABNORMAL
[2017-10-23 14:40] LABS: BURR CELLS MARKED
[2017-10-23] MEDS: DEXTROSE 5% 1000ML 1,000 ML IV SCH (17:01)
--- NOTE | 2017-10-24 07:30 | Progress Note ---
DATE: October 23, 2017 CARDIOLOGY PROGRESS NOTE SUBJECTIVE: Patient is unable to report. Currently intubated. PHYSICAL EXAMINATION VITAL SIGNS: Temperature 98.2, pulse 77, respiratory rate 22, blood pressure not recorded, on mechanical ventilator. GENERAL: Chronically ill-appearing and intubated. LUNGS: Diminished breath sounds throughout with scattered rhonchi. No crackles or wheezing noted. CARDIOVASCULAR: Regular rate and rhythm. Systolic murmur present. ABDOMEN: Distended. Tender to palpation. EXTREMITIES: No edema. NEUROLOGIC: Unresponsive to questioning. SKIN: Petechiae noted on bilateral lower extremities. CARDIOVASCULAR MEDICATIONS 1. Epinephrine IV titrate. 2. Norepinephrine IV titrate. 3. Phenyl epinephrine IV titrate. 4. Vasopressin IV titrate. 5. Fentanyl IV titrate. LABS: WBC 7.19, hemoglobin 7.8, hematocrit 26.5, and platelets 86,000. Sodium 133, potassium 5.5, BUN 34, creatinine 3.37, glucose 209, calcium 7.3, phosphorus 3.5. Magnesium 2.8. AST 57, ALT 23, alkaline phosphatase 49. X-ray of the abdomen limited exam for evaluation of free air in the peritoneal cavity. KUB or chest x-ray recommended. Telemetry is sinus rhythm. IMPRESSION 1. Acute renal failure: Possible hepatorenal. 2. Decompensated cirrhosis. 3. Acute blood loss anemia. 4. Thrombocytopenia. 5. Abnormal electrocardiogram. RECOMMENDATIONS: Cardiac enzymes are negative so far. No evidence of acute coronary syndrome. Echocardiogram has been obtained. Awaiting review of recommendations. Will follow. Continue the above list of cardiac medications. Continue supportive care. Will defer for volume management to nephrology. Thank you for this consultation, and allowing us to participate in the patient's care. DICTATED BY DORYS GAN NP Job#: [id number] JAYCE
--- NOTE | 2017-11-20 00:41 | Discharge Summary ---
PRIMARY CARE DOCTOR: Dr. Josh Muhammad DATE OF : October 23, 2017 FINAL DIAGNOSIS: Septic shock due to simultaneous bacterial peritonitis. SECONDARY DIAGNOSES 1. Acute respiratory failure. 2. Acute renal failure. 3. Metabolic acidosis. 4. Decompensated cirrhosis. CONSULTANTS 1. Dr. Olivares, nephrology. 2. Dr. Jamie Mehta, surgery. 3. Dr. Rao, pulmonary critical care. 4. Dr. Alfonso, cardiology. PROCEDURES AND STUDIES PERFORMED: Intubation. Patient, at one time, was on 4 vasopressors due to extremely poor prognosis. His son made the patient DNR and subsequently, he . Patient had paracentesis prior to admission and 2 organisms grew out of his ascites. CINDY PRINCE M.D. Job#: [id number] CQ cc:JOSH MUHAMMAD MD
== END 2017-10-23 21:20 | disposition expired | DRG 871 ==
LOC: ER 10:24 → ERHOLD 16:50 → ICU 10-22 10:48
PROVIDERS: ADMIT Internal Medicine; ATTEND Internal Medicine
PROC: 0W9G3ZZ Drainage of Peritoneal Cavity, Percutaneous Approach (ICD-10-PCS; 2017-10-21)
PROC: 5A1935Z Respiratory Ventilation, Less than 24 Consecutive Hours (ICD-10-PCS; principal; 2017-10-22)
PROC: 0BH17EZ Insertion of Endotracheal Airway into Trachea, Via Natural or Artificial Opening (ICD-10-PCS; 2017-10-22)
PROC: 02HV33Z Insertion of Infusion Device into Superior Vena Cava, Percutaneous Approach (ICD-10-PCS; 2017-10-22)
PROC: 5A1D70Z Performance of Urinary Filtration, Intermittent, Less than 6 Hours Per Day (ICD-10-PCS; 2017-10-22)
PROC: 30233P1 Transfusion of Nonautologous Frozen Red Cells into Peripheral Vein, Percutaneous Approach (ICD-10-PCS; 2017-10-22)
PROC: 30233K1 Transfusion of Nonautologous Frozen Plasma into Peripheral Vein, Percutaneous Approach (ICD-10-PCS; 2017-10-22)
DX: A41.9 Sepsis, unspecified organism (principal); K76.7 Hepatorenal syndrome; J96.00 Acute respiratory failure, unspecified whether with hypoxia or hypercapnia; G93.40 Encephalopathy, unspecified; R57.8 Other shock; R65.21 Severe sepsis with septic shock; K72.90 Hepatic failure, unspecified without coma; K65.2 Spontaneous bacterial peritonitis; E87.2 Acidosis; D62 Acute posthemorrhagic anemia; N17.9 Acute kidney failure, unspecified; K70.31 Alcoholic cirrhosis of liver with ascites; R94.31 Abnormal electrocardiogram [ECG] [EKG]; F10.20 Alcohol dependence, uncomplicated; Z66 Do not resuscitate; B96.89 Other specified bacterial agents as the cause of diseases classified elsewhere
CPT/HCPCS: 36415; 36430; 36556; 36600; 49083; 71010; 74000; 74176; 74470; 76770; 76937; 77001; 80048; 80053; 80076; 82040; 82140; 82150; 82550; 82553; 82805; 82948; 83605; 83615; 83690; 83735; 83880; 84100; 84157; 84484; 85025; 85379; 85384; 85610; 85730; 86850; 86900; 86920; 87070; 87186; 87205; 89051; 90962; 93005; 94002; 94003; 99285; J0171; J0610; J0696; J1170; J1720; J2001; J2150; J2353; J2370; J2405; J2543; J3370; J3411; J3430; J7030; J7040; J7050; J7070; J7799; P9016; P9017; P9047